=== PATIENT | male | born 1995 | race Caucasian/White ===

== ENCOUNTER 2023-02-08 03:00 | Emergency (ER) | payer BC, OTHER ==
[2023-02-08 03:20] LABS: #Eosinphils 0.1 thou/uL (0.0-0.7); #Monocytes 0.6 thou/uL (0.11-0.59); #Neutrophils 7.6 thou/uL (1.40-6.50); %Basophils 0.2 % (0.0-1.0); %Eosinophils 0.8 % (0.0-10.0); %Lymphocytes 20.6 % (21.0-51.0); %Monocytes 5.7 % (0.0-10.0); %Neutrophils 71.8 % (42.0-75.0); Hematocrit 44.4 % (42.0-52.0); Hemoglobin 15.3 g/dL (14.0-18.0); Mean Corpuscular HGB CONC 34.5 g/dL (32.0-36.0); Mean Corpuscular Volume 84.1 fl (78.0-98.0); Platelet Count 264 10x3/uL (130-400); RBC Distribution Width 12.1 % (11.5-14.5); Red Blood Cell (RBC) Count 5.28 mill/uL (4.70-6.10); White Blood Cell (WBC) Count 10.6 10x3/uL (4.8-10.8)
[2023-02-08] MEDS ORDERED: Morphine 4 MG/ML VIAL ONE (03:38)
[2023-02-08 03:44] LABS: ALT (SGPT) 43 U/L (8-55); AST (SGOT) 20 U/L (5-34); Albumin 4.4 g/dL (3.5-5.0); Alkaline Phosphatase 69 U/L (40-110); Anion Gap 13 mmol/L (10-20); BUN (Urea Nitrogen) 15 mg/dL (8.9-20.6); Bilirubin, Total 0.3 mg/dL (0.2-1.2); Calc. Creatinine Clearance 0 mL/min (70-130); Calcium 9.9 mg/dL (7.8-10.44); Carbon Dioxide 24 mmol/L (22-29); Chloride 104 mmol/L (98-107); Estimated GFR 90; Globulin 2.8 g/dL (2.4-3.5); Glucose 128 mg/dL (70-105); Potassium 3.8 mmol/L (3.5-5.1); Protein, Total 7.2 g/dL (6.0-8.3); Sodium 137 mmol/L (136-145)
[2023-02-08] MEDS ORDERED: Ondansetron PF 4 MG/2 ML Vial ONE (03:46)
[2023-02-08] MEDS ORDERED: Cyclobenzaprine 10 MG TAB ONE (04:32)
[2023-02-08] MEDS ORDERED: Ketorolac Tromethamine 30 MG/ML VIAL ONE (04:32)
[2023-02-08] MEDS ORDERED: Lidocaine 4% Patch TD SCH (04:45)
[2023-02-08] MEDS ORDERED: Iopamidol-370 76% 500 ML MDV (1 ML CHARGE) ONE (14:08)
[2023-02-08] MEDS ORDERED: Transdermal Patch Removal TOP SCH (16:45)
== END 2023-02-08 06:08 | disposition home or self-care (01) ==
LOC: ERS 03:00
DX: S32.010A Wedge compression fracture of first lumbar vertebra, initial encounter for closed fracture (principal); X58.XXXA Exposure to other specified factors, initial encounter
CPT/HCPCS: 36415; 70450; 71260; 72125; 74177; 80053; 85025; 86850; 86900; 86901; 96374; 96375; G0390; J1885; J2270; J2405; Q9967